=== PATIENT | male | born 1995 | race Hispanic/Latino ===

== ENCOUNTER 2019-04-10 04:16 | Emergency (ER) | payer OTHER, SELFPAY ==
[2019-04-10 04:47] LABS: Bilirubin Negative (Negative); Blood, Urine Negative (Negative); Clarity Clear (Clear); Glucose, Urine (Dipstick) Negative (Negative); Leukocyte Small (Negative); Nitrite Negative (Negative); Protein, Urine (Dipstick) Negative (Neg-Trace); Urobilinogen 0.2 mg/dL (0.2-1.0)
[2019-04-10 04:52] LABS: RBC/HPF 0-3 HPF (0-3)
[2019-04-10 04:53] LABS: Bacteria/HPF Rare-Few HPF (None Seen); Squamous Epithelial None Seen HPF (0-3)
[2019-04-10] MEDS ORDERED: cefTRIAXone\\ROCEPHIN 250 MG VIAL ONE (04:53)
[2019-04-10] MEDS ORDERED: Azithromycin 250 MG TAB ONE (04:53)
[2019-04-10 18:33] LABS: Chlam.trachomatis by PCR,Urine DETECTED (NotDetected)
== END 2019-04-10 05:05 | disposition home or self-care (01) ==
LOC: ERS 04:16
DX: R30.0 Dysuria (principal); R36.9 Urethral discharge, unspecified
CPT/HCPCS: 81003; 81015; 87086; 87491; 87591; 96372; J0696

== ENCOUNTER 2019-06-06 13:03 | Emergency (ER) | payer SELFPAY | END 2019-06-06 14:10 | disposition home or self-care (01) | LOC: ERS 13:03 | DX: T65.91XA Toxic effect of unspecified substance, accidental (unintentional), initial encounter (principal); T23.502A Corrosion of first degree of left hand, unspecified site, initial encounter; T23.501A Corrosion of first degree of right hand, unspecified site, initial encounter; T32.0 Corrosions involving less than 10% of body surface; X18.XXXA Contact with other hot metals, initial encounter | CPT/HCPCS: 99282 ==

== ENCOUNTER 2022-09-24 13:00 | Emergency (ER) | payer SELFPAY ==
[2022-09-24 13:32] LABS: Bilirubin Negative (Negative); Blood, Urine Negative (Negative); Clarity Clear (Clear); Glucose, Urine (Dipstick) Normal (Negative); Ketone, Urine Negative (Negative); Leukocyte Negative Leu/uL (Negative); Nitrite Negative (Negative); Protein, Urine (Dipstick) Negative (Neg-Trace); Specific Gravity, Urine 1.002 (1.002-1.036); Urobilinogen Normal mg/dL (Less than 2)
[2022-09-24] MEDS ORDERED: Ketorolac Tromethamine 30 MG/ML VIAL ONE (15:30)
== END 2022-09-24 15:53 | disposition home or self-care (01) ==
LOC: ERS 13:00
DX: M54.50 Low back pain, unspecified (principal)
CPT/HCPCS: 51798; 81003; 96372; J1885

== ENCOUNTER 2023-02-22 09:38 | Emergency (ER) | payer SELFPAY | END 2023-02-22 11:12 | disposition home or self-care (01) | LOC: ERS 09:38 | DX: M53.3 Sacrococcygeal disorders, not elsewhere classified (principal) | CPT/HCPCS: 72170 ==

== ENCOUNTER 2025-07-17 07:13 | Emergency (ER) | payer SELFPAY | END 2025-07-17 08:29 | disposition home or self-care (01) | LOC: ERS 07:13 | DX: J32.8 Other chronic sinusitis (principal); B96.89 Other specified bacterial agents as the cause of diseases classified elsewhere | CPT/HCPCS: 87428; 99283 ==

== ENCOUNTER 2025-10-08 22:28 | Emergency (ER) | payer SELFPAY ==
[2025-10-08 23:01] LABS: Bacteria/HPF None Seen HPF (None Seen); CAUTI Indications for Culture Dysuria,urgency,freq; Glucose, Urine (Dipstick) Normal (Negative); Leukocyte Negative Leu/uL (Negative); Protein, Urine (Dipstick) Negative (Neg-Trace); RBC/HPF 0-3 HPF (0-3); Specific Gravity, Urine 1.018 (1.002-1.036); WBC/HPF 0-3 HPF (0-3)
[2025-10-08 23:08] LABS: Urine Culture Reflex No No
== END 2025-10-08 23:57 | disposition home or self-care (01) ==
LOC: ERS 22:28
DX: R39.14 Feeling of incomplete bladder emptying (principal)
CPT/HCPCS: 81001; 99283